=== PATIENT | female | born 2000 | race Caucasian/White ===

== ENCOUNTER 2020-04-03 07:41 | Emergency (ER) | payer BC ==
--- NOTE | 2020-04-03 08:41 | EDPHYS ---
Physician Documentation [facility] Name: Carolina Reyez Age: 19 yrs Sex: Female : 2000 Arrival Date: 04/03/2020 Time: 07:45 Bed 5 Private MD: ED Physician Sukhdeep Dsouza HPI: 04/03 08:03 This 19 yrs old Female presents to ER via Ambulatory with complaints of Neck kb Pain, <24hrs Old, Chest Pain. 08:03 The patient or guardian complains of pain, that is acute. The symptoms are located on kb the left posterior aspect of neck and left lateral aspect of neck. Onset: The symptoms/episode began/occurred yesterday. Context: The problem was sustained at home, The neck injury/problem resulted from from unknown cause. Associated signs and symptoms: The patient has no apparent associated signs or symptoms, The patient denies any alcohol use. The patient is not apparently intoxicated. No neurological symptoms were experienced by the patient prior to arrival in the emergency department. The pain radiates to the left clavicle and anterior aspect of left upper chest. Modifying factors: The symptoms are alleviated by nothing. the symptoms are aggravated by movement. Severity of symptoms: At their worst the symptoms were mild, moderate, in the emergency department the symptoms are unchanged. The patient has experienced a previous episode. The patient has not recently seen a physician. Pt reports left sided neck pain that radiates to left shoulder and upper left chest. Reports pain worsens with arm movement and deep inspiration. Denies injury or trauma. . 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 - Social history:: Smoking status: Patient denies any tobacco usage or history of. ROS: 08:02 Constitutional: Negative for fever, chills, and weight loss, ENT: Negative for injury, kb pain, and discharge, Respiratory: Negative for shortness of breath, cough, wheezing, and pleuritic chest pain, Abdomen/GI: Negative for abdominal pain, nausea, vomiting, diarrhea, and constipation, MS/Extremity: Negative for injury and deformity, Skin: Negative for injury, rash, and discoloration, Neuro: Negative for headache, weakness, numbness, tingling, and seizure. 08:02 Neck: Positive for pain with movement, pain at rest. 08:02 Cardiovascular: Positive for chest pain, of the left clavicle and anterior aspect of left upper chest. Exam: 08:02 Constitutional: This is a well developed, well nourished patient who is awake, alert, kb and in no acute distress. Head/Face: Normocephalic, atraumatic. Neck: Trachea midline, no thyromegaly or masses palpated, and no cervical lymphadenopathy. Supple, full range of motion without nuchal rigidity, or vertebral point tenderness. No Meningismus. Chest/axilla: Normal chest wall appearance and motion. Nontender with no deformity. No lesions are appreciated. Cardiovascular: Regular rate and rhythm with a normal S1 and S2. No gallops, murmurs, or rubs. Normal PMI, no JVD. No pulse deficits. Respiratory: Lungs have equal breath sounds bilaterally, clear to auscultation and percussion. No rales, rhonchi or wheezes noted. No increased work of breathing, no retractions or nasal flaring. Abdomen/GI: Soft, non-tender, with normal bowel sounds. No distension or tympany. No guarding or rebound. No evidence of tenderness throughout. Skin: Warm, dry with normal turgor. Normal color with no rashes, no lesions, and no evidence of cellulitis. MS/ Extremity: Pulses equal, no cyanosis. Neurovascular intact. Full, normal range of motion. Neuro: Awake and alert, GCS 15, oriented to person, place, time, and situation. Cranial nerves II-XII grossly intact. Motor strength 5/5 in all extremities. Sensory grossly intact. Cerebellar exam normal. Normal gait. 08:31 ECG was reviewed by the Attending Physician. kb Vital Signs: 07:56 BP 146 / 91; Pulse 83; Resp 16; Temp 97.2; Pulse Ox 100% ; Weight 72.57 kg; Height 4 iw ft. 11 in. (149.86 cm); Pain 6/10; 07:56 Body Mass Index 32.32 (72.57 kg, 149.86 cm) iw MDM: 07:52 Patient medically screened. kb 08:02 Data reviewed: vital signs, nurses notes. Data interpreted: Pulse oximetry: on room air kb is 100 %. Interpretation: normal. 08:40 Counseling: I had a detailed discussion with the patient and/or guardian regarding: the kb historical points, exam findings, and any diagnostic results supporting the discharge/admit diagnosis, radiology results, the need for outpatient follow up, a family practitioner, to return to the emergency department if symptoms worsen or persist or if there are any questions or concerns that arise at home. 04/03 08:01 Order name: Chest Pa And Lat (2 Views) XRAY kb 04/03 08:01 Order name: EKG; Complete Time: 08:02 kb 04/03 08:01 Order name: EKG - Nurse/Tech; Complete Time: 08:32 kb EC:31 Rate is 83 beats/min. Rhythm is regular. QRS [place] is Normal. [place] interval is normal at kb 130 msec. QRS interval is normal at 80 msec. QT interval is normal at 360 msec. Administered Medications: No medications were administered Disposition: 04/03/20 08:41 Discharged to Home. Impression: Pain in neck, left side. - Condition is Stable. - Discharge Instructions: Musculoskeletal Pain, Cervical Radiculopathy, [id number]. - Medication Reconciliation Form, Thank You Letter, Antibiotic Education, Prescription Opioid Use form. - Follow up: Emergency Department; When: As needed; Reason: Worsening of condition. Follow up: Private Physician; When: 2 - 3 days; Reason: Recheck today's complaints, Continuance of care, Re-evaluation by your physician. Addendum: 04/06/2020 07:03 Co-signature as Attending Physician, Sukhdeep Dsouza MD. r n Signatures: Dispatcher [employer] EDMI Leticia Hardwick, TOE PULLER-C TOE PULLER-Ckb Maria De Jesus Mcdonough RN RN iw Nieto, Roman, MD MD rn Leal, Jahala, RN RN jl7 Corrections: (The following items were deleted from the chart) 04/03 08:52 08:41 04/03/2020 08:41 Discharged to Home. Impression: Pain in neck, left side. jl7 Condition is Stable. Forms are Medication Reconciliation Form, Thank You Letter, Antibiotic Education, Prescription Opioid Use. Follow up: Emergency Department; When: As needed; Reason: Worsening of condition. Follow up: Private Physician; When: 2 - 3 days; Reason: Recheck today's complaints, Continuance of care, Re-evaluation by your physician. kb
--- NOTE | 2020-04-03 08:41 | ER ---
Nurse's Notes [facility] Name: Carolina Reyez Age: 19 yrs Sex: Female : 2000 Arrival Date: 04/03/2020 Time: 07:45 Bed 5 Private MD: Diagnosis: Pain in neck, left side Presentation: 04/03 07:56 Chief complaint: Patient states: Left neck pain that radiates to left chest started iw yesterday. Coronavirus screen: Proceed with normal triage. Ebola Screen: Patient negative for fever greater than or equal to 101.5 degrees Fahrenheit, and additional compatible Ebola Virus Disease symptoms Patient denies exposure to infectious person. Patient denies travel to an Ebola-affected area in the 21 days before illness onset. No symptoms or risks identified at this time. Initial Sepsis Screen: Does the patient meet any 2 criteria? No. Patient's initial sepsis screen is negative. Does the patient have a suspected source of infection? No. Patient's initial sepsis screen is negative. Risk Assessment: Do you want to hurt yourself or someone else? Patient reports no desire to harm self or others. Onset of symptoms was April 02, 2020. 07:56 Method Of Arrival: Ambulatory iw 07:56 Acuity: ABBY 3 iw Triage Assessment: 07:58 General: Appears in no apparent distress. Behavior is calm, cooperative. Pain: iw Complains of pain in left posterior aspect of neck and left lateral aspect of neck Pain radiates to left clavicle and anterior aspect of left upper chest. 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 - Social history:: Smoking status: Patient denies any tobacco usage or history of. Screenin:00 Abuse screen: Denies threats or abuse. Denies injuries from another. Nutritional jl7 screening: No deficits noted. Tuberculosis screening: No symptoms or risk factors identified. Fall Risk None identified. Assessment: 08:00 General: see triage. jl7 Vital Signs: 07:56 BP 146 / 91; Pulse 83; Resp 16; Temp 97.2; Pulse Ox 100% ; Weight 72.57 kg; Height 4 iw ft. 11 in. (149.86 cm); Pain 6/10; 07:56 Body Mass Index 32.32 (72.57 kg, 149.86 cm) iw ED Course: 07:45 Patient arrived in ED. as 07:45 Leticia Hardwick FNP-C [facility]. kb 07:45 Sukhdeep Dsouza MD is Attending Physician. kb 07:57 Triage completed. iw 07:58 Arm band placed on left wrist. iw 08:00 Patient has correct armband on for positive identification. Bed in low position. Call jl7 light in reach. Side rails up X 1. 08:16 Jose Chen, RN is Primary Nurse. jl7 08:19 Chest Pa And Lat (2 Views) XRAY In Process Unspecified. EDMS 08:31 EKG done, by ED staff, reviewed by Leticia HERNANDEZ. 3 08:52 No provider procedures requiring assistance completed. Patient did not have IV access jl7 during this emergency room visit. Administered Medications: No medications were administered Outcome: 08:41 Discharge ordered by MD. kb 08:52 Discharged to home ambulatory. jl7 08:52 Condition: stable 08:52 Discharge instructions given to patient, Instructed on discharge instructions, follow up and referral plans. Demonstrated understanding of instructions, follow-up care. 08:52 Patient left the ED. jl7 Signatures: Dispatcher [employer] EDMS Leticia Hardwick FNP-C FNP-Ckb Martinez, Amelia as Maria De Jesus Mcdonough RN RN Jose Chen, ISAIAH RN [facility] Emily Cline 3
[2020-04-03 08:59] VITALS: BP 146/91; TEMP 97.2; O2SAT 100
--- NOTE | 2020-04-03 09:22 | RAD REPORT ---
EXAM DESCRIPTION: Rayray Rutledge (2 Views)04/03/2020 8:20 am CLINICAL HISTORY: Chest pain COMPARISON: None FINDINGS: The lungs appear clear of acute infiltrate. The heart is normal size IMPRESSION: No acute abnormalities displayed
== END 2020-04-03 08:52 | disposition home or self-care (01) ==
LOC: ER 07:41
DX: M54.2 Cervicalgia (principal)
CPT/HCPCS: 71046; 93005; 99283